=== PATIENT | male | born 1995 | race Caucasian/White ===

== ENCOUNTER 2022-09-21 15:33 | Emergency (ER) | payer OTHER ==
[~2022-09-21] VITALS: Ht 175.3 cm; Wt 81.1 kg
[2022-09-21] MEDS ORDERED: LIDOCAINE 1% MDV 20ML VIAL As Ordered ONE (18:35)
[2022-09-21] MEDS ORDERED: DOXYCYCLINE HYCLATE 100MG TABLET PO STA (18:47)
[2022-09-21] MEDS ORDERED: DOXY-443 PO (18:49)
[2022-09-21] MEDS ORDERED: LIDOCAINE 1% MDV 20ML VIAL SC ONE (18:50)
[2022-09-21 18:58] VITALS: BP 146/81
== END 2022-09-21 18:59 | disposition home or self-care (01) ==
LOC: M ED 15:33
DX: S50.852A Superficial foreign body of left forearm, initial encounter (principal); W45.8XXA Other foreign body or object entering through skin, initial encounter; F17.290 Nicotine dependence, other tobacco product, uncomplicated

== ENCOUNTER → 2023-01-30 | Outpatient (CLI) | payer OTHER ==
[~2023-01-30] MED LIST: DOXY-443 PO
== END ==
LOC: M RAD 13:24
PROVIDERS: ATTEND Physician Assistant
DX: N50.89 Other specified disorders of the male genital organs (principal)

== ENCOUNTER 2023-03-27 14:06 | Observation (INO) | payer OTHER ==
[~2023-03-27] VITALS: Ht 175.3 cm; Wt 79.8 kg
[~2023-03-27 14:06] MED LIST changes: +HEPARIN SOD (PORCINE) 5000UNITS/ML 1ML VIAL/SYRINGE SQ ONE; +LIDOCAINE 2% 100MG/5ML SDV (FOR ANES.) As Ordered ONE; +MIDAZOLAM INJ 2MG/2ML VIAL As Ordered ONE; +ONDANSETRON 4MG 2ML VIAL As Ordered ONE; +ROCURONIUM BROMIDE 50MG/5ML VIAL As Ordered ONE; +fentaNYL 100 MCG/2 ML INJECTION As Ordered ONE; +propofoL 200 MG/20 ML VIAL As Ordered ONE
[2023-03-27] MEDS ORDERED: LR 1,000 ML IV SCH ×2 (14:20→18:05)
[2023-03-27] MEDS ORDERED: ceFAZolin SOD 2 GM in IV 1 EA IV ONE (14:45)
[2023-03-27] MEDS ORDERED: KETAMINE HCL 200MG/20ML VIAL As Ordered ONE (15:40)
[2023-03-27] MEDS ORDERED: dexmedeTOMIDine (4MCG/ML)200MCG/50ML BTL (PRECEDEX) As Ordered ONE (15:40)
[2023-03-27] MEDS ORDERED: ACETAMINOPHEN 1000MG 100ML IV BAG As Ordered ONE (16:14)
[2023-03-27] MEDS ORDERED: HYDROmorphone HCL 2MG/ML 1ML VIAL As Ordered ONE (16:36)
[2023-03-27] MEDS ORDERED: ePHEDrine SULFATE 25 MG/5 ML(5MG/ML) SYRINGE As Ordered ONE (16:40)
[2023-03-27] MEDS ORDERED: ROCURONIUM BROMIDE 50MG/5ML VIAL As Ordered ONE (16:44)
[2023-03-27] MEDS ORDERED: oxyCODONE 5MG TAB PO PRN (18:05)
[2023-03-27] MEDS ORDERED: HYDROMORPHONE HCL 0.5 MG/ 0.5 ML SYRINGE IV PRN (18:05)
[2023-03-27] MEDS ORDERED: fentaNYL 100 MCG/2 ML INJECTION IV PRN (18:05)
[2023-03-27] MEDS ORDERED: ONDANSETRON 4MG 2ML VIAL IV PRN ×2 (18:05→19:55)
[2023-03-27] MEDS ORDERED: NORCO, ANEXSIA 5/325MG TABLET (HYDROcodone/ACETAMINOPHEN) PO PRN (19:55)
[2023-03-27] MEDS ORDERED: MORPHINE 2 MG/ML 1ML VIAL IV PRN (19:55)
[2023-03-27 20:20] VITALS: BP 123/57; TEMP 97.5; O2SAT 100
[2023-03-27 20:25] LABS: BASO % 0.2 % (0.0-1.0); HEMATOCRIT 43.8 % (42.0-52.0); HEMOGLOBIN 14.6 g/dl (13.5-17.5); LYMPH # 0.8 10^3/uL (1.5-5.0); LYMPH % 6.2 % (24.0-44.0); MEAN CORPUSCULAR HEMOGLOBIN 28.1 pg (27.0-33.0); MEAN CORPUSCULAR HGB CONC 33.3 g/dl (32.0-36.5); MEAN CORPUSCULAR VOLUME 84.2 fl (80.0-96.0); MONO # 0.1 10^3/uL (0.0-0.8); MONO % 0.9 % (2.0-8.0); NEUTROPHILS # 11.5 10^3/uL (1.5-8.5); NEUTROPHILS % 92.2 % (36.0-66.0); PLATELET COUNT, AUTOMATED 228 10^3/uL (150-450); WHITE BLOOD COUNT 12.4 10^3/uL (4.0-10.0)
[2023-03-27 20:50] VITALS: BP 126/61; TEMP 97.7; O2SAT 98
[2023-03-27 20:58] LABS: BLOOD UREA NITROGEN 18 MG/DL (9-23); CALCIUM LEVEL 9.1 MG/DL (8.5-10.1); CARBON DIOXIDE LEVEL 28 MMOL/L (20-31); CHLORIDE LEVEL 104 MMOL/L (98-107); CREATININE FOR GFR 1.09 MG/DL (0.70-1.30); GLOMERULAR FILTRATION RATE > 60.0 (>60); GLUCOSE, FASTING 143 MG/DL (60-100); POTASSIUM SERUM 4.1 MMOL/L (3.5-5.1); SODIUM LEVEL 140 MMOL/L (136-145)
[2023-03-27 21:20] VITALS: BP 128/66; TEMP 97.9; O2SAT 97
[2023-03-27] MEDS ORDERED: MULTCHW12 PO (21:27)
[2023-03-27] MEDS ORDERED: HOME MED LIST COMPLETE! XX SCH (21:30)
[2023-03-27 22:20] VITALS: BP 124/58; TEMP 98.1; O2SAT 97
[2023-03-27 23:20] VITALS: BP 126/64; TEMP 97.7; O2SAT 100
[2023-03-28 01:20] VITALS: BP 108/56; TEMP 97.3; O2SAT 96
[2023-03-28 05:10] LABS: HEMATOCRIT 42.7 % (42.0-52.0); HEMOGLOBIN 14.6 g/dl (13.5-17.5); MEAN CORPUSCULAR HEMOGLOBIN 29.2 pg (27.0-33.0); MEAN CORPUSCULAR HGB CONC 34.2 g/dl (32.0-36.5); MEAN CORPUSCULAR VOLUME 85.4 fl (80.0-96.0); PLATELET COUNT, AUTOMATED 232 10^3/uL (150-450); WHITE BLOOD COUNT 10.9 10^3/uL (4.0-10.0)
[2023-03-28 05:20] VITALS: BP 118/58; TEMP 97.9; O2SAT 97
[2023-03-28 05:34] LABS: BLOOD UREA NITROGEN 16 MG/DL (9-23); CARBON DIOXIDE LEVEL 27 MMOL/L (20-31); CHLORIDE LEVEL 102 MMOL/L (98-107); CREATININE FOR GFR 1.03 MG/DL (0.70-1.30); GLOMERULAR FILTRATION RATE > 60.0 (>60); GLUCOSE, FASTING 115 MG/DL (60-100); POTASSIUM SERUM 4.7 MMOL/L (3.5-5.1); SODIUM LEVEL 137 MMOL/L (136-145)
[2023-03-28 10:00] VITALS: BP 115/59; TEMP 98.1; O2SAT 99
== END 2023-03-28 14:37 | disposition home or self-care (01) ==
LOC: M SDC 14:06 → M RR INP 19:54 → UNDOADMOB 19:54 → M MSPAV 20:22 → M RR INP 20:22 → M MSPAV 20:25
PROVIDERS: ADMIT Surgery; ATTEND Surgery
DX: K40.30 Unilateral inguinal hernia, with obstruction, without gangrene, not specified as recurrent (principal); Z88.0 Allergy status to penicillin; F17.290 Nicotine dependence, other tobacco product, uncomplicated
CPT/HCPCS: 36415; 49650; 80048; 85025; 85027; C1781; J0131; J0665; J0690; J1100; J1170; J2250; J2405; J3010